=== PATIENT | male | born 1965 | race Two or more races ===

== ENCOUNTER 2016-11-12 19:15 | Emergency (ER) | payer BC, OTHER ==
[~2016-11-12] VITALS: Ht 167.6 cm; Wt 81.2 kg
--- NOTE | 2016-11-12 19:20 | NUR ---
TO BED 7 A 50 YO MALE BIBSELF WITH C/O "BEEN HAVING A FEELING OF BLOOD ENGORGEMENT IN MY CHEST SINCE SATURDAY." PER PATIENT HE HAD AN EPISODE OF CHEST TIGHTNESS LAST SATURDAY AFTERNOON AND A DOCTOR, HE DID AN EKG FOR HIMSELF AT HIS OFFICE WHICH SHOWED "ST ELEVATION." UPON ARRIVAL TO ER, PATIENT IS AAOX4, AMBULATORY WITH STEADY GAIT. NO S/S OF ACUTE DISTRESS NOTED. VSS. AND PER PATIENT, HE HAD ANOTHER EKG EARLIER TODAY WHICH SHOWED ABNORMAL THUS COMING TO ER. PATIENT IS NONDIAPHORETIC. MAINTENANCE ANALYST ON. INITIATED COMFORT MEASURES. ANTICIPATED NEEDS.
--- NOTE | 2016-11-12 19:32 | NUR ---
STARTED A SALINE LOCK ON THE LACG20, BLOOD DRAWN AND SENT TO LAB.
[2016-11-12 19:40] LABS: BASOPHILS % (AUTO) 0.1 % (0.0-2.0); EOSINOPHILS # (AUTO) 0.1 /CMM (0.0-0.7); EOSINOPHILS % (AUTO) 0.9 % (0.0-6.0); HEMATOCRIT 43 % (39-51); LYMPHOCYTES # (AUTO) 2.3 /CMM (0.8-4.8); MEAN CORPUSCULAR HEMOGLOBIN 27 PG (26.0-33.0); MEAN CORPUSCULAR HGB CONC 33 g/dl (31.0-36.0); MEAN CORPUSCULAR VOLUME 82 fL (80-96); MONOCYTES # (AUTO) 0.7 /CMM (0.1-1.30); PLATELET COUNT (AUTO) 253 /CMM (150-450); RDW COEFFICIENT OF VARIATION 12.8 (11.5-15.0); RED BLOOD CELL COUNT(AUTO) 5.23 MIL/uL (4.5-6.0); WHITE BLOOD COUNT (AUTO) 9.1 K/uL (4.3-11.0)
[2016-11-12 19:55] LABS: CALCIUM, SERUM 9.3 mg/dL (8.5-10.1); CARBON DIOXIDE 32 mmol/L (21-32); CHLORIDE 104 mmol/L (98-107); CREATININE 1.3 mg/dL (0.6-1.3); GLUCOSE 105 mg/dL (74-106); POTASSIUM 3.7 mmol/L (3.5-5.1); SODIUM SERUM 140 mmol/L (136-145); UREA NITROGEN, BLOOD 23 mg/dL (7-18)
[2016-11-12 19:58] LABS: INR 0.95 (0.87-1.13); PROTHROMBIN TIME 9.9 SECS (9.5-12.7)
[2016-11-12 20:01] LABS: ALANINE AMINOTRANSFERASE 52 U/L (12-78); ALBUMIN 3.7 g/dL (3.4-5.0); ALKALINE PHOSPHATASE 61 U/L (46-116); ASPARTATE AMINOTRANSFERASE 24 U/L (15-37); BILIRUBIN,DIRECT 0.1 mg/dL (0.0-0.2); BILIRUBIN,TOTAL 0.2 mg/dL (0.2-1.0); TOTAL PROTEIN, SERUM 7.5 g/dL (6.4-8.2)
[2016-11-12 20:03] LABS: TROPONIN I < 0.017 ng/mL (0.00-0.056)
--- NOTE | 2016-11-12 20:13 | NUR ---
PATIENT BACK FROM CT.
--- NOTE | 2016-11-12 20:34 | NUR ---
CALLED [facility] [employer] WAS PAGED.
[2016-11-12 20:58] VITALS: BP 145/78
--- NOTE | 2016-11-12 20:58 | NUR ---
IV removed. Catheter intact and site benign. Pressure and 4x4 applied to site. No bleeding noted. Patient discharged to home in stable condition. Written and verbal after care instructions given. Patient verbalizes understanding of instruction. Patient is ambulatory with steady gait. No further complaints.
== END 2016-11-12 20:59 | disposition home or self-care (01) ==
LOC: ER 19:17 → EDBD 19:17 → ER 20:59
DX: R07.9 Chest pain, unspecified (principal)
CPT/HCPCS: 36415; 71010; 80048; 80076; 84484; 85025; 85730; 93005; 99285; A4606; Z7610